=== PATIENT | female | born 1990 | race American Indian/Alaskan Native ===

== ENCOUNTER 2017-05-24 08:36 | Day surgery (SDC) | payer BC ==
[2017-05-24 09:01] VITALS: BMI 25.7
[2017-05-24 09:36] VITALS: TEMP 97.3
[2017-05-24] MEDS ORDERED: Propofol 10 mg/ml Inj (20 ML) ONE (11:15)
[2017-05-24] MEDS ORDERED: Midazolam 2 MG/2 ML VIAL ONE (11:15)
[2017-05-24 11:52] VITALS: O2SAT 100
[2017-05-24 12:08] VITALS: BP 116/67; PULSE 75; RESP 14
[2017-05-24] MEDS ORDERED: Lactated Ringer's 500 ML IV ONE (12:10)
== END 2017-05-24 12:50 | disposition home or self-care (01) ==
LOC: C.ENDO 08:36
PROVIDERS: ATTEND Internal Medicine Gastroenterology
DX: K63.89 Other specified diseases of intestine (principal); K64.1 Second degree hemorrhoids
CPT/HCPCS: 45380; 84703; 88305; J2250; J2704; J7120